=== PATIENT | female | born 1980 | race Caucasian/White ===

== ENCOUNTER → 2016-10-15 | Outpatient (CLI) | payer MEDICAID ==
[~2016-10-15] MED LIST: IBUPROFEN400 MG PO; KEFLEX 500MG.500 MG PO; LEVAQUIN 750 M750 MG PO; PYRIDIUM 200MG200 MG PO; SILVADENE CREAM50 GM TP; SUBOXONE1 FI2 SL; TORADOL10 M1 NG
[2016-10-15 18:21] LABS: LYMPH # 2.2 K/mm3 (0.7-4.5); LYMPH % 34.6 % (10-50.0)
[2016-10-15 20:10] LABS: HEMOGLOBIN 14.7 g/dL (12.2-16.2)
[2016-10-15 20:56] LABS: BUN 9 mg/dL (7-18)
[2016-10-15 21:04] LABS: GFR (ESTIMATED) 94 ML/MIN (59-)
[2016-10-17 08:40] LABS: Folate (Folic Acid) 12.2 ng/mL (>3.0); RA Latex Turbid. 48.3 IU/mL (0.0-13.9); Vitamin B12 465 pg/mL (211-946); Vitamin D, 25-Hydroxy 11.3 ng/mL (30.0-100.0)
[2016-10-17 16:41] LABS: Antinuclear Antibodies, IFA Negative (.)
== END ==
LOC: LAB 17:26
PROVIDERS: Physician Assistant
DX: Z86.73 Personal history of transient ischemic attack (TIA), and cerebral infarction without residual deficits (principal)